=== PATIENT | male | born 1990 | race Caucasian/White ===

== ENCOUNTER → 2018-09-17 | Emergency (ER) | payer OTHER ==
[~2018-09-17] VITALS: Ht 177.8 cm; Wt 68.0 kg
[~2018-09-17] MED LIST: CYCLOBENZAPRINE10 MG PO; IBUPROFEN200 MG PO; TYLENOL325 MG PO
--- OUTSIDE RECORDS SUMMARY | 2018-09-17 01:12 | XMS ---
PreManage Notification: KASSIE WADE Security Meter Tester Events No recent Security Events currently on file CRITERIA MET - [facility] - 2 Visits in 30 Days CARE PROVIDERS ROBBI BURDICK [facility] Current PHONE: Unknown SHAVONNE MEDRANO [facility] Current PHONE: Unknown RAFAEL EPPERSON Physician Vice Admiral Current PHONE: Unknown MERCEDES CAMPBELL [facility] PHONE: Unknown RAFAEL EPPERSON Primary Care Current PHONE: Unknown Danielle has no Care Guidelines for this patient. EAmy VISIT COUNT ([address] [facility] 1 [facility] NOTE: Visits indicate total known visits. ED/UCC VISIT TRACKING (12 MO.) 09/17/2018 01:11 [facility] [place] TYPE: Emergency COMPLAINT: - L KNEE INJURY 09/16/2018 22:28 [facility] [place] TYPE: Emergency DIAGNOSES: - [facility] K[facility] DIAGNOSES: - Ankle Injury - Ankle and foot pain - Sprain of other ligament of right ankle, initial encounter INPATIENT VISIT TRACKING (12 MO.) No inpatient visits to display in this time frame [email or web address]
== END ==
LOC: ED 01:10
PROC: 0YQGXZZ Repair Left Knee Region, External Approach (ICD-10-PCS; principal; 2018-09-17)
DX: S81.012A Laceration without foreign body, left knee, initial encounter (principal); F17.200 Nicotine dependence, unspecified, uncomplicated; W18.40XA Slipping, tripping and stumbling without falling, unspecified, initial encounter
CPT/HCPCS: 12002; 99282-25